=== PATIENT | male | born 1985 ===

== ENCOUNTER 2022-12-13 19:00 | Emergency (ER) | payer MEDICAID ==
[~2022-12-13] VITALS: Ht 177.8 cm; Wt 80.6 kg
[2022-12-13 19:03] VITALS: BP 138/81; PULSE 74; RESP 16; TEMP 97.7; O2SAT 100
[2022-12-13] MEDS ORDERED: DOXY-356 PO (19:30)
[2022-12-13] MEDS ORDERED: MUPI22OI30 TOP (19:30)
== END 2022-12-13 19:46 | disposition home or self-care (01) ==
LOC: ER 19:02
DX: L73.9 Follicular disorder, unspecified (principal)
CPT/HCPCS: 99283